=== PATIENT | female | born 2000 | race Two or more races ===

== ENCOUNTER 2024-08-23 16:42 | Emergency (ER) | payer OTHER ==
[~2024-08-23] VITALS: Ht 154.9 cm; Wt 59.0 kg
[2024-08-23 17:57] LABS: BASO % 0.8 % (0.1-1.2); EOS # 0.13 (0.04-0.54); EOS % 1.4 % (0.7-7.0); HEMATOCRIT 42.3 % (34.1-44.9); HEMOGLOBIN 13.3 g/dL (11.2-15.7); LYMPH # 1.27 (1.18-3.74); LYMPH % 13.8 % (19.3-53.1); MEAN CORPUSCULAR HEMOGLOBIN 22.1 pg (25.6-32.2); MONO # 0.76 (0.24-0.82); MONO % 8.2 % (4.7-12.5); NEUT # 6.97 (1.56-6.13); NEUT % 75.6 % (34.0-71.1); PLATELET COUNT 365 K/uL (163-369); RED BLOOD COUNT 6.01 M/uL (3.93-5.22); RED CELL DISTRIBUTION WIDTH 17.8 % (11.6-14.4)
[2024-08-23 18:12] LABS: COVID-19 AG POSITIVE (NEGATIVE)
[2024-08-23 18:31] LABS: PH,URINE 6.5 (5.0-8.0); URINE APPEARANCE Clear; URINE BILIRRUBIN Negative (NEGATIVE); URINE BLOOD Negative; URINE COLOR Yellow; URINE GLUCOSE Negative (NEGATIVE); URINE KETONE 15 (NEGATIVE); URINE LEUKOCYTE Small; URINE NITRATE Negative; URINE PROTEIN Trace (NEGATIVE)
[2024-08-23 18:35] LABS: URINE BACTERIA 3573.3 uL (0.0-1933); URINE EPITHELIAL CELLS 26.7 uL (0.0-38.8); URINE RBC 28.5 uL (0.0-20.8); URINE WBC 120.4 uL (0.0-23.2)
[2024-08-23 18:38] LABS: URINE CAST 0.58 uL (0.0-1.40)
[2024-08-23 19:04] LABS: INFLUENZA A AG NEGATIVE (NEGATIVE); INFLUENZA B AG NEGATIVE (NEGATIVE)
[2024-08-23] MEDS ORDERED: DICLOFENAC POTA50 MG PO (19:22)
[2024-08-23] MEDS ORDERED: PAXLOVID 300-11 EAC1 PO (19:22)
[2024-08-23] MEDS ORDERED: GILTUSS COUGH-118 M1 PO (19:22)
[2024-08-23] MEDS ORDERED: MACROBID 100 M100 MG PO (19:22)
== END 2024-08-23 20:19 | disposition home or self-care (01) ==
LOC: ER 16:42
PROVIDERS: Preventive Medicine Public Health & General Preventive Medicine
DX: U07.1 COVID-19 (principal); N39.0 Urinary tract infection, site not specified; Z88.0 Allergy status to penicillin